=== PATIENT | female | born 2000 | race Caucasian/White ===

== ENCOUNTER 2018-02-10 17:25 | Emergency (ER) | payer MEDICAID ==
[~2018-02-10] VITALS: Ht 154.9 cm; Wt 68.2 kg
[2018-02-10 19:51] VITALS: BP 127/75
== END 2018-02-10 20:11 | disposition home or self-care (01) ==
LOC: EMS 17:26
DX: T50.991A Poisoning by other drugs, medicaments and biological substances, accidental (unintentional), initial encounter (principal); F17.210 Nicotine dependence, cigarettes, uncomplicated; Y92.89 Other specified places as the place of occurrence of the external cause
CPT/HCPCS: 99283